=== PATIENT | male | born 1960 | race African-American/Black ===

== ENCOUNTER 2016-08-27 08:50 | Emergency (ER) ==
--- NOTE | 2016-08-27 10:24 | PROVIDER DOCUMENTATION ---
HPI-Male Problem - General Source: patient - History of Present Illness-Male Location of Complaint: reports: urethral Radiation: reports: none Quality of Pain: reports: burning Severity in ED: reports: mild Onset/Duration: reports: unsure Timing: reports: still present, constant Context/Activities at Onset: reports: none Urinary Symptoms: reports: dysuria Associated Symptoms: denies: back/neck pain, constipation, diarrhea, loss of appetite, nausea, vomiting Similar Symptoms Previously?: No Recently seen or treated by another doctor?: No <Kingston Ngo - Last Filed: 08/27/16 10:21> <Samanta Rodriguez - Last Filed: 08/27/16 12:34> - General Chief Complaint: Male Stated Complaint: COMPLICATIONS WITH CATH Time Seen by Provider: 08/27/16 09:50 Allergies/Adverse Reactions: Patient Allergies Allergy/AdvReac Type Severity Reaction Status Date / Time No Known Allergies Allergy Verified 08/27/16 10:31 Home Medications: Insulin Detemir [Levemir] 120 unit SUBQ QHS 06/30/14 Aspirin 81 mg PO DAILY 10/05/14 Hydrochlorothiazide 25 mg PO DAILY 12/04/15 Insulin Lispro [Humalog Kwikpen U-100] 18 units SQ AC 12/04/15 - History of Present Illness-Male Nature of Presenting Problem: patient is a 56 y/o M that presents to the ER needing benavidez cath removed. patient was scheduled today to have it done but came here due to pain. Denies n/ v/d, fever/chills (Kingston Ngo) Review of Systems - Adult - REVIEW OF SYSTEMS - ADULT Constitutional: denies: chills, fever Eyes: reports: no symptoms reported Ears, Nose, Mouth & Throat: reports: no symptoms reported Cardiovascular: reports: no symptoms reported Respiratory: reports: no symptoms reported Gastrointestinal: reports: no symptoms reported Genitourinary: reports: see HPI Musculoskeletal: reports: no symptoms reported Integumentary: reports: no symptoms reported Neurological: reports: no symptoms reported Psychiatric: reports: no symptoms reported Endocrine: reports: no symptoms reported Hematologic/Lymphatic: reports: no symptoms reported Allergic/Immunologic: reports: no symptoms reported All Other Systems: Reviewed and Negative <Kingston Ngo - Last Filed: 08/27/16 10:21> Past History - Adult - PAST MEDICAL HISTORY-ADULT Review of Records: reports: Old Records Reviewed, Nursing Assessment Review, Medications Reviewed Cardiovascular: reports: blood clots (on coumadin for DVT lle last year), CAD, CHF, HTN, [place] Musculoskeletal: reports: other (vascular insufficiency/neuropathy) Endocrine/Immune: reports: Diabetes - PRIOR SURGERIES/PROCEDURES Surgical/Procedure History: reports: orthopedic (extremity), other (below the right knee amputation;debridement of his left foot 2 yrs ago) - IMMUNIZATION STATUS Childhood Immunizations: UTD, See Nurse Assessment Flu Vaccine: See Nurse Assessment - FAMILY HISTORY Family History: reviewed, not pertinent - SOCIAL HISTORY Smoking: non-smoker Living Situation: family <Kingston Ngo - Last Filed: 08/27/16 10:21> Physical Exam-General - PHYSICAL EXAM-ADULT Initial Vital Signs Reviewed: Yes - CONSTITUTIONAL General Appearance: alert, no apparent distress - EYES Eyes: PERRL/EOMI, pink conjunctivae - HEAD, EARS, NOSE, MOUTH & THROAT HENMT: normocephalic/atraumatic, moist mucous membranes, normal ENT inspection - NECK Neck: full range of motion, normal inspection - RESPIRATORY Respiratory: lungs clear, normal breath sounds, no respiratory distress, no accessory muscle use - CARDIOVASCULAR Cardiovascular: normal peripheral pulses, regular rate, rhythm - GASTROINTESTINAL (ABDOMEN) Abdominal Exam: normal bowel sounds, non tender, soft - GENITOURINARY Male Genitalia: other (benavidez cath in place) - MUSCULOSKELETAL Back Exam: normal inspection, no vertebral tenderness Extremity: no calf tenderness, normal capillary refill, pelvis stable, swelling (chronic) - SKIN Integumentary: normal color, normal turgor, warm/dry - NEUROLOGIC Neurologic: grossly normal, no motor/sensory deficits - PSYCHIATRIC Psych/Mental Status: normal mood/affect, normal thought content, normal thought process, oriented x 3 <Kingston Ngo - Last Filed: 08/27/16 10:21> Progress <Kingston Ngo - Last Filed: 08/27/16 10:21> - REASSESSMENT Reassessment #1 Time Reassessed: 12:30 Status: improving (Reports [id number] at home. BP recehck at ER 151/79. Pt denies Renal failure. Reports wants to go home and f/u with Urology. Refused to have Benavidez inserted. Reports he needs to ahve it removed today per Dr. Marley.) <Samanta Rodriguez X - Last Filed: 08/27/16 12:34> - PLAN OF CARE/RESULTS Progress/Plan/Lab Results: plan of care-remove benavidez and ua (Kingston Ngo) Laboratory Results - last 24 hr 08/27/16 11:55 Urine Source CATH Urine Color ORANGE Urine Turbidity TURBID Urine pH 6.5 Ur Specific [place] 1.020 Urine Protein 300 A Ur Glucose (Stick) 500 A Ur Ketones (Stick) NEGATIVE Urine Blood MODERATE A Urine Nitrite NEGATIVE Urine Bilirubin NEGATIVE Urobilinogen Dipstick NORMAL Urine Leukocytes LARGE A Urine WBC (Auto) TNTC A Urine RBC (Auto) TNTC A U Epithel Cells (Auto) <10 Urine Bacteria (Auto) 2+ Orders Category Date Time Status Benavidez Cath Discontinuation ONCE Care 08/27/16 10:15 Active UA NIMS W/REFLEX CULT [URINALYSIS] Stat Lab 08/27/16 11:55 Results URINE CULTURE [RM] Routine Lab 08/27/16 12:20 Received URINE MANUAL MICROSCOPIC [URINALYSIS] Stat Lab 08/27/16 11:55 Results CefTRIAXONE [Rocephin] Med 08/27/16 11:49 Discontinued 1 gm .ROUTE .STK-MED ONE CefTRIAXONE [Rocephin] Med 08/27/16 11:49 Discontinued 1 gm IM NOW ONE Lidocaine 1% Pf [Xylocaine-Mpf 1%] Med 08/27/16 11:49 Discontinued 5 ml INJ NOW ONE Lidocaine 1% Pf [Xylocaine-Mpf 1%] 5 ml Med 08/27/16 11:49 Discontinued .ROUTE As Directed Vital Signs Temp Pulse Resp BP Pulse Ox 08/27/16 09:10 98.3 F 93 H 20 204/104 98 No Known Allergies Allergy (Verified 08/27/16 10:31) Insulin Detemir [Levemir] 120 unit SUBQ QHS 06/30/14 Aspirin 81 mg PO DAILY 10/05/14 Hydrochlorothiazide 25 mg PO DAILY 12/04/15 Insulin Lispro [Humalog Kwikpen U-100] 18 units SQ AC 12/04/15 ATORVAstatin [Lipitor] 40 mg PO QHS #30 tablet 12/06/15 Carvedilol [Coreg] 6.25 mg PO BID #60 tablet 12/06/15 LISINOpril [Prinivil] 20 mg PO BID #60 tablet 12/06/15 Nifedipine [Adalat cc] 90 mg PO DAILY #30 tablet.er 12/06/15 Cephalexin [Keflex] 500 mg PO BID #14 capsule 08/21/16 Doxazosin [Cardura] 4 mg PO DAILY #30 tablet 08/21/16 Hydrocodone/Acetaminophen [[place] 5-325 Tablet] 1 each PO Q6H PRN #20 tablet 11/02 Metoclopramide [Reglan] 10 mg PO AC + HS #60 tablet 08/21/16 Tamsulosin [Flomax] 0.4 mg PO DAILY #60 capsule 08/21/16 I&O 08/26/16 08/27/16 08/28/16 06:59 06:59 06:59 Output Total 15 Balance -15 Laboratory 08/27/16 11:55 Urine Source CATH Urine Color ORANGE Urine Turbidity TURBID Urine pH 6.5 Ur Specific [place] 1.020 Urine Protein 300 A Ur Glucose (Stick) 500 A Ur Ketones (Stick) NEGATIVE Urine Blood MODERATE A Urine Nitrite NEGATIVE Urine Bilirubin NEGATIVE Urobilinogen Dipstick NORMAL Urine Leukocytes LARGE A Urine WBC (Auto) TNTC A Urine RBC (Auto) TNTC A U Epithel Cells (Auto) <10 Urine Bacteria (Auto) 2+ (Samanta Rodriguez) Departure <Kingston Ngo - Last Filed: 08/27/16 10:21> - Departure Time of Disposition Order: 12:32 Certified Medical Emergency: Emergent <Samanta Rodriguez - Last Filed: 08/27/16 12:34> - Departure DIAGNOSIS: UTI (urinary tract infection) Qualifiers: Urinary tract infection type: acute cystitis Hematuria presence: without hematuria Qualified Code(s): N30.00 - Acute cystitis without hematuria Disposition: HOME 01 Condition: Stable Additional Instructions: D/c Keflex. Start Bactrim. Follow up with Dr. Donell EPSTEIN. Prescriptions: Ciprofloxacin HCl [Cipro] 500 mg PO BID #20 tablet Attestation - Scribe Verification/Attestation Scribe:: Kingston Ngo Acting as Scribe for:: Samanta Rodriguez Scribe documention review:: This chart was documented by a scribe and accurately reflects the service the provider performed and the decisions made by the provider. <Kingston Ngo - Last Filed: 08/27/16 10:21> Physician Attestation - Physician Attestation I, the provider, attest to the following statement:: Samanta Rodriguez Physician documentation Attestation:: This documentation recorded by the scribe accurately reflects the service I personally performed and the decisions made by me. <Kingston Ngo - Last Filed: 08/27/16 10:21>
[2016-08-27] MEDS ORDERED: XYLOCAINE-MPF 1% 5 ML ONE (11:49)
[2016-08-27] MEDS ORDERED: ROCEPHIN IM ONE (11:49)
[2016-08-27] MEDS ORDERED: ROCEPHIN ONE (11:49)
[2016-08-27] MEDS ORDERED: XYLOCAINE-MPF 1% INJ ONE (11:49)
[2016-08-27 11:56] LABS: URINE SOURCE CATH
[2016-08-27 12:14] LABS: BILIRUBIN URINE NEGATIVE (NEGATIVE); BLOOD URINE MODERATE (NEGATIVE); COLOR ORANGE; GLUCOSE URINE 500 mg/dL (NEGATIVE); LEUKOCYTES URINE LARGE (NEGATIVE); NITRITE URINE NEGATIVE (NEGATIVE); PH URINE 6.5; PROTEIN URINE 300 mg/dL (NEGATIVE); TURBIDITY URINE TURBID (CLEAR); UROBILINOGEN URINE NORMAL (NORMAL)
[2016-08-27 12:19] LABS: UR EPITHELIAL CELLS <10 /HPF (<10); URINE BACTERIA 2+ /HPF; URINE CULTURE NEEDED? YES; URINE MICRO REVIEW NEEDED? YES; URINE RBC TNTC /HPF (<10); URINE WBC TNTC /HPF (<10)
[2016-08-27 12:47] VITALS: BP 151/79
[2016-08-27 12:52] LABS: URINE CASTS NONE SEEN
[2016-08-27 12:53] LABS: URINE CRYSTALS NONE SEEN; URINE SMALL ROUND CELLS NONE SEEN
== END 2016-08-27 12:55 | disposition home or self-care (01) ==
LOC: ED 08:50
DX: N30.00 Acute cystitis without hematuria (principal); Z46.6 Encounter for fitting and adjustment of urinary device; R30.0 Dysuria; Z86.718 Personal history of other venous thrombosis and embolism; I25.10 Atherosclerotic heart disease of native coronary artery without angina pectoris; I10 Essential (primary) hypertension; I25.2 Old myocardial infarction; E11.40 Type 2 diabetes mellitus with diabetic neuropathy, unspecified; Z79.899 Other long term (current) drug therapy; I87.2 Venous insufficiency (chronic) (peripheral); Z89.511 Acquired absence of right leg below knee; Z79.82 Long term (current) use of aspirin; Z79.4 Long term (current) use of insulin
CPT/HCPCS: 81001; 87077; 87088; 87186; 96372; J0696; P9612

== ENCOUNTER 2017-01-19 11:53 | Inpatient (IN) ==
--- NOTE | 2017-01-19 13:40 | Diag Imaging Result Doc PS360 ---
EXAM: TOE(S)-LEFT INDICATION: Infection TECHNIQUE: 3 views COMPARISON: 01/23/2013 FINDINGS: There is extensive soft tissue edema at the tip of the great toe indicating cellulitis. There is suggestion of mild bony resorption at the tip of the great toe, best appreciated on image one. Focal osteomyelitis cannot be excluded. Consider correlation with nuclear medicine bone scan or MRI. There is extensive atherosclerotic calcification throughout the foot. IMPRESSION: Soft tissue irregularity at the tip of the great toe indicating cellulitis with suggestion of perhaps minimal bony resorption at the tip of the great toe on one image. Mild osteomyelitis cannot be excluded. Electronically signed by Jeremías Larose 01/19/2017 1:38 PM
[2017-01-19] MEDS ORDERED: ZOSYN 3.375 GM/NS 3.375 GM/50 ML IVPB IV ONE (14:45)
[2017-01-19] MEDS ORDERED: LABETALOL IV ONE (15:29)
[2017-01-19 15:30] LABS: MANUAL DIFF NEEDED? NO
[2017-01-19 15:36] LABS: BASO% 0.7 % (0.0-0.8); EOS# 0.39 X1000 (0.0-0.7); EOS% 5.7 % (0.0-10.0); HEMATOCRIT 28.5 % (42.0-52.0); HEMOGLOBIN 10.1 g/dL (14.0-18.0); LYMPH# 1.28 X1000 (1.2-3.4); LYMPH% 18.8 % (20.5-51.1); MCH 29.8 PG (27-31); MCHC 35.4 g/dL (33-37); MCV 84.1 FL (81-99); MONO# 0.58 X1000 (0.11-0.59); MONO% 8.5 % (1.7-9.3); MPV 12.2 FL (7.4-10.4); NEUT% 66.3 % (42.2-75.2); PLT 242 X1000 (130-400); RBC 3.39 XMIL (4.7-6.1)
[2017-01-19 15:52] LABS: ALBUMIN 3.6 g/dL (3.5-5.0); CALCIUM 8.9 mg/dL (8.8-10.2); POTASSIUM 4.7 mmol/L (3.5-5.1); TOTAL BILIRUBIN 0.5 mg/dL (0.20-1.00); TOTAL PROTEIN 6.6 g/dL (6.3-8.3)
--- NOTE | 2017-01-19 16:09 | PROVIDER DOCUMENTATION ---
This chart was entered by Faith Cade Scribe, acting as scribe for Williams Millan MD. HPI-Rash/Wound/ReCheck - General Chief Complaint: Extremity Injury Stated Complaint: toe injury Time Seen by Provider: 01/19/17 12:12 Source: patient Allergies/Adverse Reactions: Allergies Allergy/AdvReac Type Severity Reaction Status Date / Time No Known Allergies Allergy Verified 11/20/16 23:01 Home Medications: Home Medication List Medication Instructions Recorded Confirmed Last Taken Type Insulin Detemir [Levemir] 120 unit SUBQ QHS 06/30/14 12/31/16 01/02/17 19:00 History Aspirin 81 mg PO DAILY 10/05/14 12/31/16 11/20/16 History Hydrochlorothiazide 25 mg PO DAILY 12/04/15 12/31/16 01/03/17 05:00 History Insulin Lispro [Humalog Kwikpen 15 units SQ PRN PRN 12/04/15 12/31/16 01/02/17 12:00 History U-100] ATORVAstatin [Lipitor] 40 mg PO QHS #30 tablet 12/06/15 12/31/16 01/02/17 21:00 Rx Carvedilol [Coreg] 6.25 mg PO BID #60 tablet 12/06/15 12/31/16 01/03/17 05:00 Rx LISINOpril [Prinivil] 20 mg PO BID #60 tablet 12/06/15 12/31/16 01/02/17 21:00 Rx Amlodipine Besylate 1 tab PO DAILY 11/20/16 12/31/16 01/03/17 05:00 History Gabapentin 1 cap PO BID 11/20/16 12/31/16 01/02/17 21:00 History Isosorbide Mononitrate [Isosorbide 1 tab PO DAILY 11/20/16 12/31/16 01/03/17 05: 00 History Mononitrate ER] Oxycodone HCl/Acetaminophen 1 each PO Q4-8H PRN PRN #14 tablet 11/21/1601/03/17 05:00 Rx [Percocet 7.5-325 mg Tablet] Tamsulosin [Flomax] 0.4 mg PO DAILY 12/31/16 12/31/16 01/02/17 21:00 History Oxycodone HCl/Acetaminophen 1 each PO Q4-8H PRN PRN #10 tablet 01/03/17 Unknown Rx [Percocet 5-325 mg Tablet] - History of Present Illness-Dermatology Nature of Presenting Problem: PT IS A 57YOM PRESENTING TO THE ED C/O LEFT GREAT TOE PAIN. PT HAS A HX OF DM AND A RIGHT LOWER EXT AMPUTATION DUE TO INFECTION. PT WEARS COMPRESSION STOCKINGS AND WHEN REMOVING STOCKING HIS RIGHT GREAT TOE APPEARS TO BE INFECTED. HE STATES IT IS SWOLLEN, WITH PURULENCE DRAINAGE AND FOUL ODOR. PT RECENTLY SAW HIS PROFILE GRINDER TECHNICIAN (Twyla GOYAL) FOR HIS TOE NAILS TO BE CUT AND F/U AFTER THAT APPOINTMENT FEELING THOUGH SOMETHING WAS WRONG. DR DID NOT FIND ANY ABNORMALITIES AT THAT TIME. PT DENIES FEVER, COUGH, CONGESTION, CP, SOB, OR N/V/D AT THIS TIME. Location: reports: feet (RIGHT GREAT TOE) Quality: reports: painful Severity: reports: mild Onset/Duration: reports: just prior to arrival Timing: reports: still present Context/Associated Symptoms: reports: lesion, swelling/mass/lumps, tender area Identifiable cause?: No Similar Symptoms Previously?: Yes Recently seen or treated by another doctor?: Yes Review of Systems - Adult - REVIEW OF SYSTEMS - ADULT Constitutional: denies: chills, fever Eyes: reports: no symptoms reported Ears, Nose, Mouth & Throat: reports: no symptoms reported Cardiovascular: reports: no symptoms reported Respiratory: reports: no symptoms reported Gastrointestinal: denies: nausea, vomiting Genitourinary: reports: no symptoms reported Musculoskeletal: reports: see HPI, bone pain (RIGHT GREAT TOE), joint pain, joint swelling. denies: neck pain Integumentary: reports: skin sores/ulcer, skin thickening Neurological: reports: no symptoms reported Psychiatric: reports: no symptoms reported Endocrine: reports: no symptoms reported Hematologic/Lymphatic: reports: no symptoms reported Allergic/Immunologic: reports: no symptoms reported All Other Systems: Reviewed and Negative Past History - Adult - PAST MEDICAL HISTORY-ADULT Review of Records: reports: Nursing Assessment Review, Medications Reviewed, Social history reviewed & non-contributory. Cardiovascular: reports: blood clots (on coumadin for DVT), CAD, CHF, HTN, [place] Musculoskeletal: reports: other (vascular insufficiency/neuropathy) Endocrine/Immune: reports: Diabetes Diabetes controlled by:: Insulin Dependent - PRIOR SURGERIES/PROCEDURES Surgical/Procedure History: reports: orthopedic (extremity) (Right BKA ; debridement of his left foot 2 yrs ago) - IMMUNIZATION STATUS Childhood Immunizations: UTD, See Nurse Assessment Flu Vaccine: See Nurse Assessment - SOCIAL HISTORY Smoking: non-smoker Substance Use: denies Physical Exam-General - PHYSICAL EXAM-ADULT Initial Vital Signs Reviewed: Yes - CONSTITUTIONAL General Appearance: appears well, alert, no apparent distress - EYES Eyes: PERRL/EOMI, pink conjunctivae - HEAD, EARS, NOSE, MOUTH & THROAT HENMT: normocephalic/atraumatic, moist mucous membranes, normal ENT inspection - NECK Neck: non-tender, full range of motion, supple - RESPIRATORY Respiratory: no respiratory distress, no accessory muscle use - CARDIOVASCULAR Cardiovascular: regular rate, rhythm, no edema, no gallop, no murmur - GASTROINTESTINAL (ABDOMEN) Abdominal Exam: non tender, soft - LYMPHATIC Lymphatic: no adenopathy. negative: inguinal node tender, enlargement, striations - MUSCULOSKELETAL Back Exam: normal inspection, no CVA tenderness, no vertebral tenderness Extremity: swelling (left great toe), tenderness (mild left great toe), other ( Right BKA) Peripheral Pulses: dorsalis-pedis (R): 0 (BKA), dorsalis-pedis (L): 1+ (PT 1+) - SKIN Integumentary: warm/dry, swelling (with foul odor and mild discharge noted right great toe, hard callous inferior to small open wound at tip of great toe) , tenderness (mild left great toe). negative: warm - NEUROLOGIC Neurologic: grossly normal, sensory deficit (left foot). negative: focal weakness Progress - PLAN OF CARE/RESULTS Progress/Plan/Lab Results: Vital Signs - 8 hr 01/19/17 12:01 01/19/17 14:00 01/19/17 15:35 Temperature 98.6 F Pulse Rate 100 H 70 99 H Respiratory Rate 18 20 Blood Pressure 230/113 185/88 217/116 O2 Sat by Pulse Oximetry 100 99 99 Laboratory Results - last 24 hr 01/19/17 01/19/17 15:00 15:00 WBC 6.81 RBC 3.39 L Hgb 10.1 L Hct 28.5 L MCV 84.1 MCH 29.8 MCHC 35.4 RDW Std Deviation 12.2 Plt Count 242 MPV 12.2 H Immature Gran % (Auto) 0.0 Neut % (Auto) 66.3 Lymph % (Auto) 18.8 L [place] % (Auto) 8.5 Eos % (Auto) 5.7 Baso % (Auto) 0.7 Immature Gran # (Auto) 0.00 Neut # (Auto) 4.51 Lymph # (Auto) 1.28 [place] # (Auto) 0.58 Eos # (Auto) 0.39 Baso # (Auto) 0.05 Sodium 139 Potassium 4.7 Chloride 105 Carbon Dioxide 22 L Anion Gap 12 BUN 39 H Creatinine 1.7 H Estimated GFR/1.73 m2 50 BUN/Creatinine Ratio 23 Glucose 220 H Calculated Osmolality 294 Calcium 8.9 Total Bilirubin 0.50 AST 16 ALT 11 Alkaline Phosphatase 125 H Total Protein 6.6 Albumin 3.6 Globulin 3.0 Albumin/Globulin Ratio 1.2 Orders Category Date Time Status TOE(S)-LEFT [RAD] Stat Exams 01/19/17 12:49 Completed CBC WITH ELECTRONIC DIFF [HEME] Stat Lab 01/19/17 15:00 Completed COMPREHENSIVE METABOLIC PANEL [CHEM] Stat Lab 01/19/17 15:00 Completed WOUND CULTURE INC GRAM STAIN [RM] Routine Lab 01/19/17 15:30 Received Labetalol Med 01/19/17 15:29 Discontinued 20 mg IV NOW ONE Piperacil/Tazobact 3.375 gm/Ns [Zosyn 3.375 gm/Ns] Med 01/19/17 14:45 Discontinued 3.375 gm in 50 ml IV NOW Result Diagrams: 01/19/17 15:00 01/19/17 15:00 - XRAY 1 XRAY: Left XRAY Study: Foot (toes) Impression: Abnormal (azeem erosion tip of great toe) - CONSULTS/PCP/HOSPITALIST Notification #1 *Consult/PCP/Hospitalist*: Annette Time Discussed: 14:44 Consult Disposition: Admit Departure - Departure Time of Disposition Decision: 13:30 DIAGNOSIS: Acute osteomyelitis of toe of left foot, Toe infection, Accelerated essential hypertension Disposition: ADMITTED INPATIENT 09 Certified Medical Emergency: Emergent Condition: Good Referrals and Follow-Ups: Aris Saez MD [Primary Care Provider] - - Critical Care Note This patient required my direct & personal management of CC.: No This chart was documented by the indicated scribe, (Faith Cade, Katia) and accurately reflects the services I performed and decisions made by me, Williams Millan MD, as attested by the provider's signature.
[2017-01-19] MEDS: VANCOMYCIN 1 GM/NS 1 GM/250 ML IVPB IV SCH (16:35)
[2017-01-19] MEDS ORDERED: INSULIN LISPRO 15 UNIT SQ PRN (17:25)
--- NOTE | 2017-01-19 18:31 | Diag Imaging Result Doc PS360 ---
EXAM: CHEST-PORTABLE INDICATION: pre op TECHNIQUE: One view COMPARISON: 11/20/2016 FINDINGS: The lungs are grossly clear. There is no discrete pleural fluid collection or pneumothorax. The heart is at least mildly prominent, probably at least in part due to magnification from AP technique. It is stable. The central vasculature is unremarkable. IMPRESSION: Mildly prominent heart. No evidence of acute pathology. Electronically signed by Jeremías Larose 01/19/2017 6:29 PM
--- NOTE | 2017-01-19 18:50 | CONSULTATION ---
DATE OF CONSULTATION: 01/19/2017 CONSULTING PHYSICIAN: Dr. Skyler Bryant. CONSULTING REASON: Medical management. CHIEF COMPLAINT: Left toe pain. HISTORY OF PRESENT ILLNESS: Mr. Cintron is a 57-year-old male with multiple medical problems who presented to the ER today with progressively worse left great toe pain. He states that the pain has been going on for 1 month but over the past few days has gotten progressively worse. He denies any fevers or chills, he does report some left lower extremity edema. He denies any other acute symptoms. He denies any chest pain, shortness of breath abdominal pain, nausea, vomiting or diarrhea. He came to the ER today and a x-ray of the left foot revealed possible osteomyelitis of the great toe on the left. Dr. Bryant has admitted him and consulted us for medical management, specifically his blood pressure has been hovering around 200 systolic since he has been here and he has asked us to help manage that. PAST MEDICAL HISTORY: 1. Hypertension. 2. Type 2 diabetes. 3. CHF. 4. Diabetic neuropathy. 5. Hypertension. 6. Coronary artery disease. 7. History of left lower extremity DVT. 8. Dysphagia of unknown etiology. 9. CKD stages 3-[address] Shah. 10. Dysuria, hematuria followed by Dr. Waters status post cystoscopy. SURGICAL HISTORY: He has had recent colonoscopy and cystoscopy, he has also had a right below-the- knee amputation secondary to diabetic wound and a right lower extremity ischemia. He has also had bilateral cataract removal. SOCIAL HISTORY: Patient denies tobacco, alcohol or drug use. He is . He has 2 children. He lives in [place] and is on disability. FAMILY HISTORY: Father from a gunshot wound. Mother from CVA. ALLERGIES: No known drug allergies. REVIEW OF SYSTEMS: Fourteen-point review of systems obtained and found to be negative. HOME MEDICATIONS: Norvasc 10 mg daily, aspirin 81 mg daily, Lipitor 40 mg p.o. at bedtime, Coreg 12.5 mg b.i.d., gabapentin 300 mg b.i.d., hydrochlorothiazide 25 mg daily, Levemir 120 units subcu daily, lispro 15 units subcu as needed, isosorbide mononitrate 60 mg daily, Prinivil 20 mg daily, omeprazole 40 mg daily, Flomax 0.4 mg daily. REVIEW OF SYSTEMS: 14 point review of systems obtained and found to be negative with the exception of the HPI. PHYSICAL EXAMINATION: Vital Signs: Blood pressure is 206/106, heart rate 62, respiratory rate is 18, O2 saturation 100% on room air, temperature is 97.5 degrees. General: This is a well- developed, well-nourished male lying in hospital bed in no acute distress. Neurologic: The patient is awake and alert. He follows commands. Has no focal deficits. HEENT: Head atraumatic, normocephalic. His pupils are equal, round and reactive to light. Oral mucosa is moist. Trachea is midline. There is no JVD. Chest: Clear to auscultation bilaterally. CV: Regular rate and rhythm. S1-S2 is noted. No murmurs. GI: Soft nondistended, nontender. Bowel sounds positive. Extremities: Right lower BKA noted. Left lower extremity with 1+ edema. Foot is overall cool to touch. Pulses are diminished and he has a diabetic ulcer about the tip of the left great toe. DIAGNOSTIC DATA: WBC 6.81, hemoglobin 10.1, hematocrit 28.5, platelet count 242,000. Sodium 139, potassium 4.7, chloride 105, CO2 22, anion gap 12, BUN 39, creatinine 1.7, glucose 220, calcium is 8.9, magnesium 2.1, bilirubin 0.5, AST 16, ALT 11, alkaline phosphatase 125, albumin 3.6. ASSESSMENT AND PLAN: 1. Left great toe diabetic foot ulcer: Management per Dr. Bryant. X-ray does not show any acute fractures but does show some osteomyelitis and cellulitis, cultures have been obtained and appropriate antibiotics have been ordered. Will also check a left lower extremity ultrasound as he does have some edema of the left lower limb and a history of DVTs in the past. 2. Accelerated hypertension: Will continue all the home medications with the exception of his hydrochlorothiazide which will hold. We will add p.r.n. hydralazine and labetalol. Will also check a chest x-ray and EKG. 3. Type 2 diabetes: Will continue his home medications, check hemoglobin A1c and add pattern sugars and sliding scale insulin. 4. Chronic kidney disease 3: This is chronic and stable. Will continue to monitor his daily creatinine and he seems to be at his baseline, electrolytes, acid base and hemoglobin and hematocrit are overall stable. 5. History of coronary artery disease: This appears to be chronic and stable. We were going to hold his aspirin as he will likely have surgery in the morning. Will check a lipid panel, hemoglobin A1c and continue on with the rest of his medications which are appropriate, also check an EKG and monitor telemetry. 6. History of dysphagia: Patient states he has trouble swallowing on occasion but he is on a normal diet. He denies any history of cerebrovascular accident and he does not have any focal deficits at this time but he might benefit from a swallow study. 7. Benign prostatic hypertrophy: Continue his Flomax. Chronic and stable. 8. Deep vein thrombosis prophylaxis with heparin given his renal failure and will discontinue this 6 hours prior to any procedure. 9. We would like to thank you for this consultation. We will continue to follow along with you. Dictated by LEIF Ackerman for Gaetano Harrison MD cc: LEIF Ackerman MD Jason R. Seale, MD
[2017-01-19] MEDS ORDERED: INSULIN PEN NEEDLES ONE (21:25)
[2017-01-19] MEDS: NEURONTIN PO SCH (21:36)
[2017-01-19] MEDS: LIPITOR PO SCH (21:37)
[2017-01-19] MEDS: PRINIVIL PO SCH (21:37)
[2017-01-19] MEDS: COREG PO SCH (21:37)
[2017-01-19] MEDS: LEVEMIR SUBQ SCH (21:38)
[2017-01-19] MEDS: HEPARIN SUBQ SCH (21:38)
[2017-01-19] MEDS: HUMALOG SUBQ SCH (21:39)
[2017-01-19] MEDS: ZOSYN 3.375 GM/NS 3.375 GM/50 ML IVPB IV SCH (21:43)
[2017-01-19 22:08] LABS: URINE MICRO REVIEW NEEDED? NO; URINE SOURCE CLEAN CATCH
[2017-01-19 22:18] LABS: BILIRUBIN URINE NEGATIVE (NEGATIVE); BLOOD URINE MODERATE (NEGATIVE); COLOR YELLOW; GLUCOSE URINE 200 mg/dL (NEGATIVE); LEUKOCYTES URINE LARGE (NEGATIVE); NITRITE URINE POSITIVE (NEGATIVE); PROTEIN URINE 300 mg/dL (NEGATIVE); SP GRAVITY URINE 1.009; TURBIDITY URINE HAZY (CLEAR); UROBILINOGEN URINE NORMAL (NORMAL)
[2017-01-19 22:19] LABS: UR EPITHELIAL CELLS <10 /HPF (<10); URINE BACTERIA NEGATIVE /HPF; URINE CULTURE NEEDED? YES; URINE RBC <10 /HPF (<10); URINE WBC TNTC /HPF (<10)
--- NOTE | 2017-01-19 22:34 | HISTORY AND PHYSICAL ---
CHIEF COMPLAINT: Left great toe pain, swelling and drainage. HISTORY OF PRESENT ILLNESS: This is a 57-year-old male with diabetes, who has had left great toe pain for about 1 month. He hit his toe yesterday, and checked it, and found it to be swollen and draining with some odor to it. His foot is also swollen. He does not have any recent chills or fevers, abdominal pain, nausea, vomiting or other systemic complaints. In the emergency room, his x-ray of the foot reveals possible osteomyelitis of the tip of the distal phalanx. In addition, he is quite hypertensive. He has been admitted for further management. PAST MEDICAL HISTORY: Hypertension, type 2 diabetes, CHF, hypertension, coronary artery disease, history of left leg DVT, chronic kidney disease, history of dysuria and hematuria, follow up with Dr. Waters. PAST SURGICAL HISTORY: Cystoscopy, right BKA, bilateral cataract removal. ALLERGIES: No known drug allergies. HOME MEDICATIONS: Norvasc, aspirin, Lipitor, Coreg, gabapentin, hydrochlorothiazide, Levemir, lispro, isosorbide mononitrate, Prinivil, omeprazole, Flomax. FAMILY HISTORY: Father of the of a gunshot wound. His mother of a stroke. SOCIAL HISTORY: He denies tobacco, alcohol or illicit drug use. He is with 2 children. He is on disability. REVIEW OF SYSTEMS: Ten systems reviewed and negative except as noted above. PHYSICAL EXAMINATION: VITAL SIGNS: Temperature 97.8, pulse 74, respirations 20, blood pressure 185 to 217 systolic, and 88 to 116 diastolic, O2 saturation 97%. GENERAL: Well-developed male, in no distress, who looks stated age. HEENT: Normocephalic, atraumatic. Extraocular muscles intact. Pupils equal, round, reactive to light. Sclerae anicteric. Moist mucous membranes. NECK: Supple. No thyromegaly. CARDIOVASCULAR: Regular rate and rhythm. There is a 1+ dorsalis pedis pulse, although, the posterior tibial pulse is difficult to ascertain secondary to the edema. RESPIRATORY: Bilateral breath sounds. No work of breathing. GI: Soft, nontender, nondistended. No organomegaly or mass. EXTREMITIES: He has a healed right BKA with his prosthetic sleeve on. His left leg is edematous down into the foot. There is no significant erythema. There is a slight odor to the tip of the great toe, where there is a necrotic ulcer with some purulent appearing drainage. The nail of the great toe appears to be significantly dystrophic. LABORATORY: White blood cell count 6.8, hemoglobin 10.1, platelet count 242,000. Electrolytes reviewed, and notable for glucose of 220, BUN 39, creatinine 1.7. IMAGING: As described above in HPI. He also had a chest x-ray which showed 2 shows cardiomegaly. ASSESSMENT AND PLAN: A 57-year-old male with multiple medical problems, now with a left diabetic foot infection, and probable osteomyelitis of the left great toe. He has hypertensive urgency. The hospitalist was consulted to assist with the diabetes and hypertension. We will put him on vancomycin and Zosyn, and I am planning debridement in the operating room, of the soft tissue of the toe, and probably the tip of the phalanx. cc: Skyler Bryant MD
[2017-01-20] MEDS: VANCOMYCIN 1 GM/NS 1 GM/250 ML IVPB IV SCH ×2 (04:24→16:49)
[2017-01-20] MEDS: ZOSYN 3.375 GM/NS 3.375 GM/50 ML IVPB IV SCH ×4 (04:24→22:17)
[2017-01-20 05:50] LABS: HEMATOCRIT 27.6 % (42.0-52.0); HEMOGLOBIN 9.8 g/dL (14.0-18.0); MCH 29.7 PG (27-31); MCHC 35.5 g/dL (33-37); MCV 83.6 FL (81-99); MPV 11.8 FL (7.4-10.4); RBC 3.3 XMIL (4.7-6.1)
[2017-01-20 06:00] LABS: INR 0.95; PROTIME 9.9 Seconds (9.2-11.7)
[2017-01-20 06:15] LABS: AGAP 13; BUN 35 mg/dL (8-22); CALCIUM 8.6 mg/dL (8.8-10.2); CHLORIDE 105 mmol/L (98-107); COSMO 283; HDL 75 mg/dL (35-55); IRON SATURATION 23 %; LDL 88 mg/dL; POTASSIUM 4.3 mmol/L (3.5-5.1); SODIUM 139 mmol/L (136-145); TCO2 21 mmol/L (25-35); TIBC 254 ug/dL; TOTAL IRON 59 ug/dL (53-167); TRIGLYCERIDES 78 mg/dL (39-160); UNBOUND IRON 195 ug/dL (112-346); VLDL 16 mg/dL
[2017-01-20] MEDS: HUMALOG SUBQ SCH ×4 (06:15→22:15)
[2017-01-20 06:45] LABS: FERRITIN 192 ng/mL (30-400)
[2017-01-20 07:23] LABS: HEMOGLOBIN A1C 7.9 % (4.8-6.0)
[2017-01-20] MEDS ORDERED: ASPIRIN PO SCH (09:00)
[2017-01-20] MEDS ORDERED: HYDROCHLOROTHIAZIDE PO SCH (09:00)
[2017-01-20] MEDS: HEPARIN SUBQ SCH (10:29)
[2017-01-20] MEDS: PRINIVIL PO SCH ×2 (10:29→22:14)
[2017-01-20] MEDS: NORVASC PO SCH (10:30)
[2017-01-20] MEDS: NEURONTIN PO SCH ×2 (10:30→22:14)
[2017-01-20] MEDS: COREG PO SCH ×2 (10:30→22:14)
[2017-01-20] MEDS: PRILOSEC PO SCH (10:30)
[2017-01-20] MEDS: IMDUR PO SCH (10:30)
[2017-01-20] MEDS: FLOMAX PO SCH (10:30)
--- NOTE | 2017-01-20 10:38 | PROGRESS NOTE ---
DATE: 01/20/2017 SUBJECTIVE: The patient complains of some throbbing in his left great toe. OBJECTIVE: Vital Signs: He is afebrile. Vital signs are stable. General: He is alert and oriented x3. No acute distress. Extremities: His left great toe continues to have some odor and slight purulent drainage to it with necrotic eschar on the tip. There is swelling in his foot. Laboratory: BUN 35, creatinine 1.6. White blood cell count 7.7. ASSESSMENT AND PLAN: A 57-year-old male with a diabetic foot infection and probable osteomyelitis of the great toe. We will continue with vancomycin and Zosyn, and we are planning operative debridement tomorrow including the tip of the distal phalanx. The risks, benefits, and alternatives were discussed with him including bleeding, ongoing infection, possible need for further debridements, or a toe amputation. He understands and agrees to proceed. cc: Skyler Bryant MD
[2017-01-20] MEDS: NORCO-7.5 PO PRN ×2 (10:39→23:46)
--- NOTE | 2017-01-20 15:41 | PROGRESS NOTE ---
DATE: 01/20/2017 SUBJECTIVE: This is a 57-year-old with a history of diabetes. He is having left great toe pain, swelling, and drainage. This is a 57-year-old who had left great toe pain for about a month. He hit his toe yesterday and checked it and found it to be swollen, draining with some odor to it. Denied having recent chills or fever, nausea or vomiting. No systemic complaints. In the emergency room x-ray of his foot reveals possible osteomyelitis at the tip of the distal phalanx. In addition, he is quite hypertensive. He is feeling a little better. Concerned about the foot. States he really does not want to lose his other foot. PAST MEDICAL HISTORY: Hypertension, diabetes mellitus type 2, congestive heart failure, coronary artery disease, history of left leg DVT, chronic kidney disease, history of dysuria, hematuria for which he is following by Dr. Waters, I believe, or he will follow with Dr. Waters. PAST SURGICAL HISTORY: Cystoscopy, right [id number] amputation, bilateral cataract removal. OBJECTIVE: Vital signs: Temp 98.1 degrees, pulse 70, respirations 16, blood pressure 205/90, then 130/57 and 207/92. Respiratory: Lungs are clear in all lung rubio. Cardiovascular: Regular rhythm and rate without murmur or S3. Abdomen: Soft. : Urine output 800 mL. LABORATORY: White count 7,710, hematocrit 27, platelet count 226,000. Kidney function: Creatinine 1.6. Sodium 139, potassium 4.3, chloride 105, bicarb 21, BUN 35, blood sugar 69, 110. Toe x-ray from 01/19: Soft-tissue irregularity at the tip of the great toe indicating cellulitis and suggesting perhaps minimal bony resorption at the tip of the great toe on 1 image; mild osteomyelitis could not be excluded. ASSESSMENT AND PLAN: 1. Diabetic foot infection, probably osteomyelitis of the great toe. Continue vancomycin and Zosyn. Plan to get operative debridement tomorrow of the tip of the distal phalanx. 2. Diabetes mellitus type 2. Continue to follow pattern sugars. 3. Chronic kidney disease. Aware. I think his chronic kidney disease stage 3. I think he is followed by Dr. Shah. 4. History of congestive heart failure. 5. Diabetic neuropathy. 6. History of coronary artery disease. REVIEW OF ORDERS: I do not see any changes at this time. He is on Zosyn 3.375 mg IV q.6, vancomycin 1 g q.12, labetalol 20 mg IV, got 1 dose yesterday, Flomax 0.4 mg a day, Prilosec 40 mg a day, Prinivil 20 mg b.i.d., isosorbide mononitrate 60 mg a day, insulin detemir 120 units subcutaneously at bedtime, Neurontin 300 mg b.i.d., hydrocodone 7.5 one q.6 hours, Coreg 12.5 mg b.i.d., Lipitor 40 mg a day, Norvasc 10 mg a day. There is no growth from the urine. Wound culture, more incubation is required. cc: MD Skyler Lyn MD
[2017-01-20] MEDS: LEVEMIR SUBQ SCH (22:14)
[2017-01-20] MEDS: LIPITOR PO SCH (22:14)
[2017-01-21] MEDS: VANCOMYCIN 1 GM/NS 1 GM/250 ML IVPB IV SCH ×2 (03:18→17:56)
[2017-01-21] MEDS: ZOSYN 3.375 GM/NS 3.375 GM/50 ML IVPB IV SCH ×3 (03:32→22:29)
[2017-01-21 08:04] LABS: HEMATOCRIT 24.9 % (42.0-52.0); HEMOGLOBIN 8.6 g/dL (14.0-18.0); MCH 29.7 PG (27-31); MCHC 34.5 g/dL (33-37); MCV 85.9 FL (81-99); RBC 2.9 XMIL (4.7-6.1)
[2017-01-21 08:18] LABS: CALCIUM 8.5 mg/dL (8.8-10.2)
[2017-01-21] MEDS: COREG PO SCH ×2 (09:02→21:21)
[2017-01-21] MEDS ORDERED: FENTANYL ONE (11:20)
[2017-01-21] MEDS ORDERED: DIPRIVAN 1% ONE (11:20)
[2017-01-21] MEDS ORDERED: VERSED ONE (11:20)
--- NOTE | 2017-01-21 13:03 | PROGRESS NOTE ---
DATE: 01/21/2017 SUBJECTIVE: Mr. Cintron had a good night. No real change. No pain at this time. OBJECTIVE: Temperature 97.2 degrees, pulse 67, respirations 10, blood pressure 169/89. Pupils are equal. CVP less than 6 cm. Lungs are clear in all lung rubio. Cardiovascular: Regular rhythm and rate without murmur or S3. Urine output 2300 mL. LABORATORY DATA: White count 6020 this morning. Hematocrit 24, platelet count 206,000. Sodium 140, potassium 4.0, chloride 106 bicarb 22, BUN 35, creatinine 1.9, blood sugars 138, 173, 120. ASSESSMENT AND PLAN: 1. Diabetic foot infection probably osteomyelitis, great toe. Continue vancomycin and Zosyn. Plan for debridement today. 2. Diabetes mellitus, type 2. Sugar is under good control. 3. Chronic kidney disease, stage 3. Followed by Dr. Shah. 4. History of congestive heart failure. 5. Diabetic neuropathy. 6. Coronary artery disease, aware. I looked at the orders. No changes at this time. cc: Kwame Ferrer MD
[2017-01-21] MEDS ORDERED: NITROGLYCERIN ONE (13:05)
[2017-01-21] MEDS ORDERED: XYLOCAINE-MPF 2% ONE (13:05)
[2017-01-21] MEDS ORDERED: LR 1,000 ML ONE (13:05)
--- NOTE | 2017-01-21 13:32 | OPERATIVE NOTE ---
PROCEDURE DATE: 01/21/2017 PREOPERATIVE DIAGNOSES: 1. Left diabetic foot infection. 2. Osteomyelitis of left great toe. 3. Dystrophic great toe nail. POSTOPERATIVE DIAGNOSES: 1. Left diabetic foot infection. 2. Osteomyelitis of left great toe. 3. Dystrophic great toe nail. PROCEDURE: 1. Debridement of skin, subcutaneous tissue, and bone of the left great toe less than 20 square cm. 2. Excision of left great toenail with matricectomy. SURGEON: Skyler Bryant MD ESTIMATED BLOOD LOSS: 3 mL. COMPLICATIONS: None apparent. SPECIMENS: Left great toenail and bony tissue for culture. FINDINGS: There was necrotic skin and subcutaneous tissue at the tip of the left great toe with exposed bone underneath and there was a very dystrophic great toenail. TECHNIQUE: He was brought to the operating room and placed supine on the table. General anesthesia was induced. He was prepped and draped in the usual sterile fashion. The necrotic skin was sharply debrided with a knife revealing exposed bone of the distal tip of the phalanx, this was debrided sharply with a rongeur back to firmer bone more proximally. The wound measured approximately 2 x 1 cm. I then removed the dystrophic nail with a hemostat and curetted the base of the matrix and then the cauterized the matrix to ablate that tissue. The wound was irrigated with saline and then a Betadine moistened gauze was placed over these wounds and his foot was wrapped with sterile Kerlix. There were no apparent complications. He was transferred to recovery room in stable condition. cc: MD Kwame Samson MD
[2017-01-21] MEDS: IMDUR PO SCH (15:02)
[2017-01-21] MEDS: NEURONTIN PO SCH ×2 (15:02→21:21)
[2017-01-21] MEDS: NORVASC PO SCH (15:02)
[2017-01-21] MEDS: PRILOSEC PO SCH (15:02)
[2017-01-21] MEDS: FLOMAX PO SCH (15:02)
[2017-01-21] MEDS: PRINIVIL PO SCH ×2 (15:04→21:21)
[2017-01-21] MEDS: HUMALOG SUBQ SCH ×3 (15:04→21:21)
[2017-01-21] MEDS: PERIDEX MT SCH (21:21)
[2017-01-21] MEDS: LIPITOR PO SCH (21:21)
[2017-01-21] MEDS: LEVEMIR SUBQ SCH (22:31)
[2017-01-22] MEDS: ZOSYN 3.375 GM/NS 3.375 GM/50 ML IVPB IV SCH ×3 (02:54→14:19)
[2017-01-22] MEDS: VANCOMYCIN 1 GM/NS 1 GM/250 ML IVPB IV SCH (04:02)
[2017-01-22] MEDS: HUMALOG SUBQ SCH ×2 (06:04→12:00)
[2017-01-22 06:45] LABS: HEMATOCRIT 23.8 % (42.0-52.0); HEMOGLOBIN 8.3 g/dL (14.0-18.0); MCH 29.3 PG (27-31); MCHC 34.9 g/dL (33-37); MCV 84.1 FL (81-99); MPV 12.6 FL (7.4-10.4); RBC 2.83 XMIL (4.7-6.1)
[2017-01-22 07:04] LABS: CALCIUM 8.4 mg/dL (8.8-10.2); POTASSIUM 4.2 mmol/L (3.5-5.1)
[2017-01-22] MEDS: PERIDEX MT SCH (08:05)
[2017-01-22] MEDS: PRILOSEC PO SCH (08:05)
[2017-01-22] MEDS: FLOMAX PO SCH (08:06)
[2017-01-22] MEDS: PRINIVIL PO SCH (08:06)
[2017-01-22] MEDS: IMDUR PO SCH (08:06)
[2017-01-22] MEDS: NORVASC PO SCH (08:06)
[2017-01-22] MEDS: COREG PO SCH (08:06)
[2017-01-22] MEDS: NEURONTIN PO SCH (08:06)
--- NOTE | 2017-01-22 12:55 | PROGRESS NOTE ---
DATE: 01/22/2017 SUBJECTIVE: Mr. Cintron is in good spirits. Did do some debridement yesterday per Dr. Bryant. Debridement of skin and subcutaneous tissue in the bone of the right big toe less than 20 square cm. Excision of the right toe nail and matricectomy. Continue antibiotics. Still throbbing discomfort. Micro urine grew Enterobacter, but from the wound it was Staphylococcus capitis warneri which the warneri is resistant to oxacillin. OBJECTIVE: Today, temperature 98.1 degrees, pulse 70, respirations 18, blood pressure 113/55. CVP less than 6 cm. Lungs are clear in all lung rubio. Cardiovascular: Regular rhythm and rate without murmur or S3. Urine output 1800 mL. LABORATORY DATA: From today, white count 5950. Hematocrit 23, platelet count 208,000. Sodium 138, potassium 4.2, chloride 106, bicarb 22. BUN 30, creatinine 2.0, blood sugar is 157, 226, 146. ASSESSMENT AND PLAN: 1. Diabetic foot ulcer, probable osteomyelitis. Debridement yesterday. Continue vancomycin and Zosyn. 2. Diabetes mellitus, type 2. Sugar under good control. 3. Chronic kidney disease, stage 3, aware. 4. Congestive heart failure. 5. Diabetic neuropathy. 6. Coronary artery disease. We will fix it so that he can continue to elevate his head. We will get Elsi Black involved in the wound care as well and will ask Dr. Reyes to render an opinion on how long we need antibiotics if the infection went to the bone. I think we are committed to 6 weeks of antibiotics. cc: Kwame Ferrer MD
[2017-01-22] MEDS ORDERED: CUBICIN (FOR INPATIENT USE) 500 MG in NS 100 ML IV SCH (14:30)
--- NOTE | 2017-01-22 15:08 | PROGRESS NOTE ---
DATE: 01/22/2017 SUBJECTIVE: The patient does not complain of any significant pain in his foot. Only some mild throbbing. OBJECTIVE: He is afebrile. Vital signs were stable.General: He is alert and oriented x4. No acute distress. Extremities: His left foot wound was examined. There is no bleeding or purulent drainage. There is no foul odor. The wound appears clean. LABORATORY: White cell count 5.9, hemoglobin 8.3. BUN 30, creatinine 2.0. MICROBIOLOGY: The toe wound on admission shows a staphylococcus warneri and staphylococcus capitis infection. The culture yesterday of the bone so far showed no growth. ASSESSMENT AND PLAN: A 57-year-old male admitted with a diabetic foot infection and possible osteomyelitis. He has also been found to have a small amount of Enterobacter in his urine. He is status post debridement of the toe. I think given the lack bacteria on the Gram stain of the bone and after having this debridement of the tip of his phalanx I do not think he needs 6 weeks of IV antibiotics for osteomyelitis, rather 10 days of gram-positive and gram-negative coverage for the Staphylococcus and possible gram-negative bacteria in a diabetic foot would be reasonable. I will see him back regularly on a weekly basis to determine the clinical response. We will let him be discharged today. cc: MD Kwame Samson MD
--- NOTE | 2017-01-22 15:48 | PROGRESS NOTE ---
DATE: 01/22/2017 CONCLUSION: Patient is status post debridement of his left great toe. There was osteomyelitis present but the toe has been debrided and the osteomyelitis has been removed. The culture from the toe is growing Staph warneri and Staph capitis. The patient also has a urine urinary tract infection due to Enterobacter and on urinalysis there were many white cells seen in the urine but no bacteria. RECOMMENDATIONS: I have discussed this with the patient and Dr. Bryant. Since the osteomyelitis has been debrided away we are going to send the patient home on a combination of doxycycline and Levaquin for 10 days. The patient will have follow up with Dr. Bryant on a weekly basis. DISCUSSION: The patient tells me that he has been having progressive pain and swelling in his left great toe and then also developed necrosis. He was admitted to the hospital and has undergone debridement of skin, subcutaneous tissue, and bone of the left great toe with excision of the left great toenail with matrixectomy. The patient's laboratory studies thus far: Culture from the toe as mentioned above, grew Staph capitis, Staph warneri.. The patient's creatinine is 2. The GFR is 42. The alkaline phosphatase is 125. The rest the liver function studies are normal. CBC shows a white count of 5950, hemoglobin 8.3 and platelet count 208, 000. Urinalysis showed white cells but no bacteria. The patient's urine culture grew Enterobacter. This was susceptible to Levaquin which the patient is receiving. PAST MEDICAL HISTORY/REVIEW OF SYSTEMS: Eyes and Ears: The patient has decreased hearing. Neck: No stiffness. Respiratory: No cough or shortness of breath. Cardiac: No chest pain or palpitations. GI: No nausea, vomiting, or diarrhea. : No dysuria or flank pain. Bones, joints, muscles: See present illness for description of the patient's pain in his left great toe. Endocrine: Patient is diabetic but he does not have thyroid disease. Hematologic: Patient denied having anemia or a bleeding tendency. Integument: No rash present. PREVIOUS HOSPITALIZATIONS AND OPERATIONS: He has been admitted before for infection in his feet. He has had a right [id number] amputation and a myocardial infarction. MEDICAL DISEASES: Positive for diabetes mellitus, hypertension, and myocardial infarction. Gastroesophageal reflux disease. The patient also had recently a dilatation of the esophagus which has enabled him to swallow much easier. He also has hyperlipidemia and benign prostatic hypertrophy. INFECTIOUS DISEASE HISTORY: Positive for bilateral foot infections. FAMILY HISTORY: Positive for cancer, hypertension and stroke. SOCIAL HISTORY: [place] He is . He is disabled. He does not have any pets at home. He does not drink alcoholic beverages, smoke or abuse drugs. He has no drug allergies. ALLERGIES: His chart lists no known drug allergies. MEDICATIONS: The patient's medications taken at home include the following: Flomax, Prinivil, Isordil, insulin, hydrochlorothiazide, gabapentin, aspirin, amlodipine, Lipitor , Coreg, omeprazole, Levaquin, hydrocodone and doxycycline. PHYSICAL EXAMINATION: Vital Signs: Temperature is 98.1 degrees, pulse 73, respirations 18, blood pressure 113/55. Patient weighs 210 pounds. Generally: This is an obese, middle-aged male. He is in no acute distress. Head, eyes, ears, nose, and throat: Decreased hearing. He can see near objects. There were no white patches on his tongue. Neck: No meningismus. Thorax: No increased AP diameter. Lungs: Clear to auscultation. Cardiovascular: Heart rate is regular. Peripheral pulses were palpable in the left leg. Abdomen: Soft and nontender. Bones, joints, muscles: The patient has a right [id number] amputation. His left great toe , the nail has been removed. The tissue is beefy red in color. There is an ulcerated area in the distal toe. Neurologic: Patient is alert. He can move his extremities. There is no tremor. His sensation was intact to touch. His memory, as regarding his medical history was decreased. There was no tremor. Integument: No rash noted. Thank you for the consult. The patient will have follow up with Dr. Bryant. I am available to see the patient on a p.r.n. basis. cc: MD Kwame Arauz MD MTDD
[2017-01-22 15:50] VITALS: BP 144/72
--- NOTE | 2017-01-23 08:12 | Extremity Venous Study ---
PROCEDURE NAME: Venous U/S Left Leg - 01/20/2017 LEFT LOWER EXTREMITY VENOUS DUPLEX STUDY: READING PHYSICIAN: Dr. Skyler Bryant. SEARCH MANAGER: Hemal. INDICATION: Left leg swelling and pain. FINDINGS: The left common femoral, deep femoral, superficial femoral, greater saphenous, popliteal, posterior tibial, and peroneal veins were imaged throughout their course. All are compressible with forward flow. No thrombus is appreciated. cc: MD Carlos Samson CRNP Allen J. Schmidt, MD
[2017-01-23] MEDS ORDERED: LEVAQUIN PO SCH (15:00)
== END 2017-01-22 16:48 | disposition home or self-care (01) ==
LOC: ED 11:53 → 4N 16:49
PROVIDERS: ADMIT Emergency Medicine; ATTEND Surgery